=== PATIENT | female | born 1990 | race Two or more races ===

== ENCOUNTER 2024-06-10 11:30 | Emergency (ER) | payer OTHER ==
[~2024-06-10] VITALS: Ht 160 cm; Wt 77.6 kg
[2024-06-10] MEDS ORDERED: ZEPBOUND5 MG/0.5 M SQ (12:21)
[2024-06-10] MEDS ORDERED: CEFTRIAXONE SODIUM 1,000 MG VIAL IV ONE (13:15)
[2024-06-10] MEDS ORDERED: TAMSULOSIN HCL 0.4 MG CAP PO ONE ×2 (13:15→13:33)
[2024-06-10] MEDS ORDERED: MEPERIDINE HCL/PF 50 MG/ML VIAL IM ONE (13:15)
[2024-06-10] MEDS ORDERED: FAMOtidine 10 MG/ML (4ML VIAL) IV ONE (13:15)
[2024-06-10] MEDS ORDERED: CEFTRIAXONE SODIUM 1,000 MG VIAL ONE (13:34)
[2024-06-10] MEDS ORDERED: FAMOTIDINE/PF 20 MG/2 ML VIAL ONE (13:34)
[2024-06-10 14:27] LABS: HEMATOCRIT 37.7 % (36.0-45.00); HEMOGLOBIN 12.2 g/dL (12.0-15.00); MEAN CELL VOLUME 81.1 fL (80.00-100.00); MEAN CORPUSCULAR HEMOGLOBIN 26.1 pg (27.00-32.0); MEAN CORPUSCULAR HGB CONC 32.2 g/dl (32.0-36.0); PLATELET COUNT 306 K/uL (150-450); RED BLOOD COUNT 4.65 M/uL (4.00-6.00); RED CELL DISTRIBUTION WIDTH 14.2 % (11.5-14.5)
[2024-06-10 14:40] LABS: INR 1.06; PARTIAL THROMBOPLASTIN TIME 24.5 SECONDS (22.0-34.0); PROTHROMBIN TIME 11.5 SECONDS (9.0-11.5)
[2024-06-10 14:49] LABS: ALBUMIN 3.7 gm/dL (3.4-5.0); ALKALINE PHOSPHATASE 131 U/L (50-136); ALT/SGPT 28 U/L (12-78); ANION GAP 8 (10.0-20.0); AST/SGOT 14 U/L (15-37); BILIRUBIN TOTAL 0.36 mg/dL (0.3-1.2); BLOOD UREA NITROGEN 9 mg/dL (7-18); BUN CREA RATIO 12 (7.0-25.0); CALCIUM 9.5 mg/dL (8.5-10.1); CARBON DIOXIDE 29 mEq/L (21-32); CHLORIDE 108 mmol/L (98-107); CREATININE SERUM 0.75 mg/dL (0.55-1.02); GFR 89.55; GLUCOSE FASTING 118 mg/dL (65-100); OSMOLALITY SERUM 281 MOSM/KG (275-295); POTASSIUM 4.15 mEq/L (3.5-5.1); SODIUM 141 mmol/L (136-145); TOTAL PROTEIN 7.7 gm/dL (6.4-8.2)
[2024-06-10 14:50] LABS: HCG QUANTITATIVE < 1 mUI/mL (1-3)
[2024-06-10] MEDS ORDERED: PIPERACILLIN/TAZOBACTAM SODIUM 3.375 GM VIAL IV ONE ×2 (15:28→15:30)
[2024-06-10 15:55] LABS: PH,URINE 5.5 (5.0-8.0); URINE APPEARANCE Clear; URINE BILIRRUBIN Negative (NEGATIVE); URINE BLOOD Large; URINE COLOR Yellow; URINE GLUCOSE Negative (NEGATIVE); URINE KETONE Negative (NEGATIVE); URINE LEUKOCYTE Small; URINE NITRATE Negative; URINE PROTEIN Negative (NEGATIVE); URINE UROBILINOGEN 0.2 E.U./dl
[2024-06-10 15:58] LABS: URINE BACTERIA 113.7 uL (0.0-1933); URINE EPITHELIAL CELLS 25.1 uL (0.0-38.8); URINE RBC 26.2 uL (0.0-20.8); URINE WBC 63.7 uL (0.0-23.2)
[2024-06-10] MEDS ORDERED: PEPCID AC20 MG PO (16:42)
[2024-06-10] MEDS ORDERED: KETO10TA2 PO (16:42)
[2024-06-10] MEDS ORDERED: BACTRIM DS TAB1 EACH PO (16:42)
[2024-06-10] MEDS ORDERED: ZOFRAN8 MG PO (16:42)
[2024-06-10 16:43] LABS: URINE CAST 0.44 uL (0.0-1.40)
== END 2024-06-10 16:55 | disposition home or self-care (01) ==
LOC: ER 11:32 → EMR PED 11:54 → ER 11:54
PROVIDERS: General Practice
DX: R10.32 Left lower quadrant pain (principal); N13.2 Hydronephrosis with renal and ureteral calculous obstruction; E11.9 Type 2 diabetes mellitus without complications